=== PATIENT | male | born 1985 | race Hispanic/Latino ===

== ENCOUNTER 2022-03-01 08:00 | Day surgery (SDC) | payer OTHER ==
[2022-02-27 09:18] LABS: BASOPHILS % (AUTO) 0.9 % (0.0-5.0); EOSINOPHILS % (AUTO) 4.5 % (0.0-8.0); HEMATOCRIT 44.8 % (42-54); LYMPHOCYTES % (AUTO) 40.3 % (21.0-51.0); MEAN CORPUSCULAR HEMOGLOBIN 31.1 pg (27.0-33.0); MEAN CORPUSCULAR VOLUME 88.7 fL (79-99); MONOCYTES % (AUTO) 8.2 % (3.0-13.0); NEUTROPHILS % (AUTO) 45.4 % (40.0-77.0); PLATELET COUNT (AUTO) 234 K/uL (130-400); RED BLOOD CELL COUNT(AUTO) 5.05 MIL/uL (4.50-6.20); RED CELL DISTRIBUTION WIDTH 11.8 % (11.0-15.5); WHITE BLOOD COUNT (AUTO) 5.6 K/uL (4.8-10.8)
[2022-02-27 09:26] LABS: ALBUMIN 4.1 g/dL (3.5-5.0); CARBON DIOXIDE 29 mmol/L (21-32); CHLORIDE 101 mmol/L (101-111); CREATININE 0.9 mg/dL (0.5-1.5); GLOMERULAR FILTR. RATE CALC 100 mL/min (>60); GLUCOSE,RANDOM 94 mg/dL (70-105); POTASSIUM 4.4 mmol/L (3.5-5.1); SODIUM SERUM 137 mmol/L (136-145); UREA NITROGEN, BLOOD 12 mg/dL (7-18)
[2022-02-27 09:28] LABS: CRP QUANTITATIVE < 2.00 mg/L (0.00-9.0)
[2022-02-28 10:47] VITALS: BP 143/92
[~2022-03-01] VITALS: Ht 182.9 cm; Wt 122.1 kg
[2022-03-01] VITALS (16 sets, daily range): BP systolic 118–147; BP diastolic 55–91
[2022-03-01] MEDS: CEFAZOLIN SODIUM 1 GM VIAL IVP SCH ×2 (08:30→12:00)
[2022-03-01] MEDS ORDERED: LACTATED RINGERS 1000ML 1,000 ML IV ONE (08:36)
[2022-03-01] MEDS ORDERED: SUCCINYLCHOLINE CHLORIDE 20 MG/ML 10 ML VIAL ONE (09:19)
[2022-03-01] MEDS ORDERED: GLYCOPYRROLATE 1 MG/5 ML SYRINGE ONE (09:19)
[2022-03-01] MEDS ORDERED: ONDANSETRON 4MG INJ ONE (09:19)
[2022-03-01] MEDS ORDERED: DEXAMETHASONE SOD PHOSPHATE 10MG/ML 1ML VIAL ONE (09:19)
[2022-03-01] MEDS ORDERED: SUCCINYLCHOLINE 200MG/10ML SYR ONE (09:19)
[2022-03-01] MEDS ORDERED: FENTANYL CITRATE PF 50 MCG/1 ML 2ML VIAL ONE ×3 (09:20→13:33)
[2022-03-01] MEDS ORDERED: NEOSTIGMINE 5MG/5ML SYR IV ONE (09:20)
[2022-03-01] MEDS ORDERED: PROPOFOL 10 MG/ML 20ML VIAL IV ONE ×2 (09:20→12:16)
[2022-03-01] MEDS ORDERED: MIDAZOLAM HCL 1 MG/ML 2ML VIAL ONE (09:20)
[2022-03-01] MEDS ORDERED: ROCURONIUM 10MG/1ML SYR 10 MG/ML ML ONE (09:20)
[2022-03-01] MEDS ORDERED: ROPIVACAINE 0.5% 5MG/ML 30ML IJ ONE (11:00)
[2022-03-01] MEDS ORDERED: EPINEPHRINE PF 1MG (1:1,000) 1 MG/ML AMP ONE (11:12)
[2022-03-01] MEDS ORDERED: HYDR-4060 PO (13:49)
== END 2022-03-01 16:00 | disposition home or self-care (01) ==
LOC: DAH 08:00
PROVIDERS: ATTEND Student in an Organized Health Care Education/Training Program
DX: M19.012 Primary osteoarthritis, left shoulder (principal); M24.012 Loose body in left shoulder; S43.432A Superior glenoid labrum lesion of left shoulder, initial encounter; S46.012A Strain of muscle(s) and tendon(s) of the rotator cuff of left shoulder, initial encounter; M75.42 Impingement syndrome of left shoulder; M75.22 Bicipital tendinitis, left shoulder; M94.212 Chondromalacia, left shoulder; M75.52 Bursitis of left shoulder; G47.33 Obstructive sleep apnea (adult) (pediatric); F41.9 Anxiety disorder, unspecified; F32.A Depression, unspecified; E66.9 Obesity, unspecified; F17.200 Nicotine dependence, unspecified, uncomplicated; Z72.89 Other problems related to lifestyle; Z98.890 Other specified postprocedural states; Z86.010 Personal history of colon polyps; Z68.37 Body mass index [BMI] 37.0-37.9, adult
CPT/HCPCS: 87426; 82040; 80048; 85025; 84134; 86140; 36415; 29823; 64415; 76942; A4663; A6207; J7030; J7120 ×2; J3010 ×3; J0690; J0330 ×2; J3490; J1100; J2710; J0171; J2250; J2704 ×2; J2405; J2795; A6223; A4649; A4930; A4215; A4223; A4222; A4221; A4600